=== PATIENT | female | born 1935 | race Caucasian/White ===

== ENCOUNTER → 2016-10-01 | Outpatient (CLI) | payer BC ==
[~2016-10-01] MED LIST: AMLO-110 PO; ASPI-461 PO; AVP150 PO; HYDC25 PO; LEVO50TA PO; LIDO5DIS10 TD
== END | disposition home or self-care (01) ==
LOC: C.MAMM 15:24
PROVIDERS: ATTEND Internal Medicine
DX: M84.30XA Stress fracture, unspecified site, initial encounter for fracture (principal); Z13.820 Encounter for screening for osteoporosis; M85.852 Other specified disorders of bone density and structure, left thigh; M85.851 Other specified disorders of bone density and structure, right thigh

== ENCOUNTER → 2016-10-01 | Outpatient (CLI) | payer BC ==
--- NOTE | 2016-10-15 10:51 | CODING QUERY MEDICAL NECESSITY ---
SUPPORTING DIAGNOSIS NEEDED A supporting diagnosis is required for the test/procedure performed on this patient in order for us to be reimbursed by the patient's insurance. Please provide a supporting diagnosis for the following test/procedure listed below next to the test name along with your signature. *If there is no additional diagnosis for this patient that would support the following test/procedure please document that below next to the test/procedure. Test(s)/Procedure(s) that require a supporting diagnosis: * VITAMIN D 25-HYDROXY DIAGNOSIS: * DOS: 10/01/16 Provider Signature: Date: Thank you Kelly Vargas Health Information Management Once completed, please kindly fax back to [phone] For questions please call [phone]
== END | disposition home or self-care (01) ==
LOC: C.LABBFT 10:37
PROVIDERS: ATTEND Physician Assistant Medical
DX: R79.9 Abnormal finding of blood chemistry, unspecified (principal); M84.30XA Stress fracture, unspecified site, initial encounter for fracture; Z13.820 Encounter for screening for osteoporosis; M85.852 Other specified disorders of bone density and structure, left thigh; M85.851 Other specified disorders of bone density and structure, right thigh; R53.83 Other fatigue

== ENCOUNTER → 2016-10-05 | Outpatient (CLI) | payer BC ==
[2016-10-05 18:02] LABS: THYROID STIMULATING HORMONE 3.39 uIu/ml (0.300-4.500)
[2016-10-06 07:48] LABS: ESTIMATED AVERAGE GLUCOSE 137 mg/dl; HA1C FLAG Normal (Normal)
== END | disposition home or self-care (01) ==
LOC: C.LABBFT 14:15
PROVIDERS: ATTEND Internal Medicine
DX: R73.9 Hyperglycemia, unspecified (principal); E03.9 Hypothyroidism, unspecified

== ENCOUNTER → 2017-04-14 | Outpatient (CLI) | payer BC ==
[2017-04-14 17:40] LABS: URINE APPEARANCE TURBID (CLEAR); URINE BILIRUBIN NEG (NEG); URINE COLOR YELLOW; URINE EPITHELIAL CELL AUTO 20-30 /lpf (0-5); URINE NITRITE NEG (NEG); URINE SPECIFIC GRAVITY 1.018 (1.000-1.030); UROBILINOGEN NEG (NEG); ZZUR CULT IF INDIC CLEAN CATCH YES
[2017-04-14 17:44] LABS: ALT/SGPT 22 U/L (12-78); BLOOD UREA NITROGEN 26 mg/dl (7-18); BUN/CREATININE RATIO 20.2 (10-20); CALCIUM 9.5 mg/dl (8.5-10.1); CARBON DIOXIDE 25 mmol/L (21-32); CHLORIDE 104 mmol/L (98-107); CHOLESTEROL 264 mg/dl (0-200); GLUCOSE 88 mg/dl (70-99); POTASSIUM 4.8 mmol/L (3.5-5.1); SODIUM 139 mmol/L (136-145); TRIGLYCERIDES 307 mg/dl (0-150); URIC ACID 9.4 mg/dl (2.6-7.2); VERY LOW DENSITY LIPOPROT CALC 61 mg/dl
[2017-04-14 17:53] LABS: ALKALINE PHOSPHATASE 74 U/L (45-117); AST/SGOT 19 U/L (15-37); CHOLESTEROL/HDL RATIO 5.9; HDL CHOLESTEROL 45 mg/dl; LDL CHOLESTEROL CALCULATED 158 mg/dl
[2017-04-14 17:54] LABS: MANUAL MICROSCOPIC REQUIRED? NO; REVIEW REQ? NO
[2017-04-14 18:13] LABS: BASO % 0.4 %; BASO ABS # 0.03 K/uL (0-0.2); COMPLETE YES; EOS % 1.3 %; HEMATOCRIT 40.4 % (37-47); IG% 0.3 %; LYMPH % 34.9 %; MEAN CORPUSCULAR HEMOGLOBIN 32.4 pg (25-34); MEAN CORPUSCULAR HGB CONC 32.4 g/dl (32-36); MEAN PLATELET VOLUME 10.4 fL (7.4-10.4); MONO % 10.1 %; PLATELET COUNT 324 K/uL (130-400); RED BLOOD COUNT 4.04 M/uL (4.2-5.4); WHITE BLOOD COUNT 7.74 K/uL (4.8-10.8)
[2017-04-14 18:30] LABS: RATIO 44.1 mcg/mg (0-30.0)
== END ==
LOC: C.LABBFT 13:41
PROVIDERS: ATTEND Physician Assistant Medical
DX: R73.01 Impaired fasting glucose (principal); R39.9 Unspecified symptoms and signs involving the genitourinary system; E55.9 Vitamin D deficiency, unspecified; E03.9 Hypothyroidism, unspecified

== ENCOUNTER → 2017-04-20 | Outpatient (CLI) | payer BC ==
[2017-04-20 18:02] LABS: BLOOD UREA NITROGEN 19 mg/dl (7-18); BUN/CREATININE RATIO 15.4 (10-20); CALCIUM 8.9 mg/dl (8.5-10.1); CARBON DIOXIDE 26 mmol/L (21-32); CHLORIDE 105 mmol/L (98-107); GLUCOSE 88 mg/dl (70-99); POTASSIUM 4.8 mmol/L (3.5-5.1); SODIUM 138 mmol/L (136-145)
== END | disposition home or self-care (01) ==
LOC: C.LABBFT 11:28
PROVIDERS: ATTEND Physician Assistant Medical
DX: N28.9 Disorder of kidney and ureter, unspecified (principal)

== ENCOUNTER → 2017-05-10 | Outpatient (CLI) | payer BC ==
[2017-05-10 17:47] LABS: BLOOD UREA NITROGEN 26 mg/dl (7-18); BUN/CREATININE RATIO 19.8 (10-20); CALCIUM 9.2 mg/dl (8.5-10.1); CARBON DIOXIDE 26 mmol/L (21-32); CHLORIDE 103 mmol/L (98-107); CREATININE 1.29 mg/dl (0.60-1.20); GLUCOSE 159 mg/dl (70-99); POTASSIUM 4.4 mmol/L (3.5-5.1); SODIUM 138 mmol/L (136-145)
== END | disposition home or self-care (01) ==
LOC: C.LABBFT 12:54
PROVIDERS: ATTEND Physician Assistant Medical
DX: N28.9 Disorder of kidney and ureter, unspecified (principal)

== ENCOUNTER → 2017-10-18 | Outpatient (CLI) | payer BC ==
[2017-10-18 13:01] LABS: HEMOGLOBIN A1C 6.5 % (4.5-5.6)
[2017-10-18 13:02] LABS: ALBUMIN 3.2 gm/dl (3.4-5.0); ALT/SGPT 18 U/L (12-78); AST/SGOT 16 U/L (15-37); BLOOD UREA NITROGEN 20 mg/dl (7-18); CALCIUM 8.5 mg/dl (8.5-10.1); CARBON DIOXIDE 26 mmol/L (21-32); CHOLESTEROL 231 mg/dl (0-200); CREATININE 1.22 mg/dl (0.60-1.20); GLUCOSE 94 mg/dl (70-99); POTASSIUM 4.6 mmol/L (3.5-5.1); SODIUM 139 mmol/L (136-145)
[2017-10-18 13:12] LABS: ALKALINE PHOSPHATASE 65 U/L (45-117); LDL CHOLESTEROL CALCULATED 143 mg/dl; TOTAL PROTEIN 6.8 gm/dl (6.4-8.2)
[2017-10-18 15:07] LABS: CREATININE RANDOM URINE 87.7 mg/dl
== END | disposition home or self-care (01) ==
LOC: C.LABBFT 10:09
PROVIDERS: ATTEND Physician Assistant Medical
DX: E55.9 Vitamin D deficiency, unspecified (principal); N28.9 Disorder of kidney and ureter, unspecified; E11.29 Type 2 diabetes mellitus with other diabetic kidney complication

== ENCOUNTER 2018-02-28 23:55 | Emergency (ER) | payer BC ==
[~2018-02-28] VITALS: Ht 152.4 cm; Wt 78.0 kg
[~2018-02-28 23:55] MED LIST changes: -AMLO-110 PO; -AVP150 PO; +CHOL20005 PO; +CIPR1TAB10 PO; -HYDC25 PO; +HYDR12.56 PO; +IRBE-39 PO; -LIDO5DIS10 TD
[2018-03-01 00:01] VITALS: TEMP 36.5; Ht 152.4 cm; Wt 78.0 kg
[2018-03-01 00:11] VITALS: O2SAT 95
--- NOTE | 2018-03-01 00:19 | EMERGENCY ROOM VISIT NOTE ---
History Report prepared by Danay: Wayne Livingston Under the Supervision of: Dr. Chela Sierra D.O. First contact with patient: 00:05 Chief Complaint: ALLERGIC REACTION Stated Complaint: ALLERGIC REACTION-TONGUE NUMB/SWELLING History of Present Illness The patient is an 82 year old female who presents to the Emergency Room with complaints of constant swelling in her throat and numbness to her tongue that began at 2200, 2 hours ago. The patient and her daughter at bedside notes that she ate a sausage sandwich at 1700, 7 hours ago. The symptoms onset at 2200, 5 hours after eating the sausage sandwich. She notes that she could feel the swelling on the left side of her throat, and does feel a "difficulty swallowing. " The patient also complains of itchiness to her hands and under her arms. She did take one tablet of Benadryl about 25 minutes prior to arrival, per the daughter. She has a history of hypertension and blood pressure. The patient later recalled that she did eat 2 [employer] cookies right before her symptoms began. Source of History: patient Onset: 2 years ago Position: tongue Quality: other (swelling) Timing: constant Note: Itchiness to hands and under arms Review of Systems See HPI for pertinent positives & negatives. A total of 10 systems reviewed and were otherwise negative. Past Medical & Surgical Medical Problems: (1) HTN (hypertension) Hx of Hypothyroidism. Family History Cancer Diabetes mellitus Social History Smoking Status: Never Smoker Housing Status: lives with family Occupation Status: retired Current/Historical Medications Scheduled Aspirin (Aspirin), 81 MG PO DAILY Cholecalciferol (Vitamin D3), 2,000 UNITS PO DAILY Hydrochlorothiazide (Hctz), 12.5 MG PO DAILY Irbesartan (Avapro), 300 MG PO DAILY Levothyroxine Sodium (Synthroid), 50 MCG PO DAILY Allergies Coded Allergies: Sulfamethoxazole w/Trimethoprim (Verified Allergy, Unknown, ., 12/12/17) Physical Exam Vital Signs Date Time Temp Pulse Resp B/P (MAP) Pulse Ox O2 Delivery O2 Flow Rate FiO2 03/01/18 02:11 76 19 158/75 96 03/01/18 01:23 75 19 163/77 96 Room Air 03/01/18 00:17 81 03/01/18 00:11 95 Room Air 03/01/18 00:08 96 Room Air 03/01/18 00:01 36.5 84 18 175/82 95 Room Air Physical Exam HEENT: Head - normocephalic and atraumatic Pupils are equal, round, and reactive to light. Extraocular eye muscles are intact, and sclera are anicteric. Nose - moist nasal mucosa without discharge. Mouth - moist buccal mucosa. There is edema under the tongue with water blisters to the left side of her tongue. Oropharynx is nonerythematous and there is no tonsillar exudate or edema noted. Neck: Supple; no JVD, nuchal rigidity, cervical lymphadenopathy. Heart: Regular rate and rhythm. There is a normal S1 and S2 with no murmurs, clicks, or gallops appreciated. Lungs: Clear to auscultation bilaterally with no wheezes, rales, or rhonchi. Abdomen: Soft, completely nontender, nondistended, with good bowel sounds. There are no palpable pulsatile masses or hepatosplenomegaly. There is no guarding, rigidity, or rebound noted. Extremities: No evidence of cyanosis, clubbing, or edema. There are easily palpable peripheral pulses. Skin: There is redness to her face and palms of her hands. Medical Decision & Procedures Medications Administered Medications (Trade) Dose Ordered Sig/[place] Route Start Time Stop Time Status Last Admin Dose Admin Diphenhydramine HCl (Benadryl Inj) 25 mg NOW STAT IV 03/01/18 00:23 03/01/18 00:25 DC 03/01/18 00:35 25 MG Dexamethasone Sodium Phosphate (Decadron Inj) 10 mg STK-MED ONCE .ROUTE 03/01/18 00:31 03/01/18 00:32 DC 03/01/18 00:35 10 MG Ranitidine HCl 50 mg/Dextrose 102 ml @ 204 mls/hr NOW ONCE IV 03/01/18 01:00 03/01/18 01:29 DC 03/01/18 00:50 204 MLS/HR Procedure Medications ordered: IV Benadryl, IV Zantac, IV Decadron ED Course 0008: Past medical records reviewed. The patient was evaluated in room B2. A complete history and physical exam was performed. 0023: Ordered Benadryl 25 mg IV. 0100: Ordered Ranitidine HCl 50 mg 102 mL @ 204 mL/hr IV. IV Decadron 0158: Upon reevaluation, she is feeling much better and her swelling/redness is all gone. I discussed findings and results with her and her daughter. They verbalized agreement of the treatment plan. The patient was discharged home. Medical Decision The patient is a 82 year old female who presents to the Emergency Department complaining of swelling to her throat and tongue as well as itching to her hands. Differential diagnosis includes allergic reaction, anaphylaxis, and angioedema. This is an 82-year-old female patient was having a allergic reaction. Initially , the patient thought that it was from a hot sausage sandwich. However, the patient had ingested that food 5 hours prior to her symptoms starting. She was able to remember that she developed these symptoms a couple minutes after she had eaten some cookies. She is most likely having an allergic reaction secondary to the cookies. She was given Benadryl, Zantac, and Decadron with significant relief of her symptoms. She was encouraged to avoid using those cookies again in the future. She can continue to use Benadryl and Zantac if needed. Medication Reconcilliation Current Medication List: was personally reviewed by me Blood Pressure Screening Patient's blood pressure: Elevated blood pressure Blood pressure disposition: Elevated BP felt to be situational Impression Primary Impression: Allergic reaction Scribe Attestation The scribe's documentation has been prepared under my direction and personally reviewed by me in its entirety. I confirm that the note above accurately reflects all work, treatment, procedures, and medical decision making performed by me. Departure Information Dispostion Home / Self-Care Referrals Perez Anderson M.D. (PCP) Forms HOME CARE DOCUMENTATION FORM, IMPORTANT VISIT INFORMATION Patient Instructions My [facility] [address] Additional Instructions Rest. Take benadryl - 50mg every 6 hours for reaction along with zanctac - 75mg Return to the ED if you have a worsening allergic reaction Problem Qualifiers Primary Impression: Allergic reaction Encounter type: initial encounter Qualified Codes: T78.40XA - Allergy, unspecified, initial encounter
[2018-03-01] MEDS ORDERED: RANITIDINE HCL 50 MG/100 ML D5W IV STA (00:23)
[2018-03-01] MEDS ORDERED: DiphenhydrAMINE HCL 50 MG/ML VIAL IV STA (00:23)
[2018-03-01] MEDS ORDERED: DEXAMETHASONE INJ 10 MG in SYRINGE 0 ML IV STA (00:23)
[2018-03-01] MEDS ORDERED: DEXAMETHASONE SOD INJ 10 MG/ML VIAL ONE (00:31)
[2018-03-01] MEDS ORDERED: RANITIDINE IV 50 MG in DEXTROSE 5% 100ML 100 ML IV ONE (01:00)
[2018-03-01 02:11] VITALS: BP 158/75; PULSE 76; O2SAT 96
== END 2018-03-01 02:13 | disposition home or self-care (01) ==
LOC: C.EDB 23:57
DX: T78.40XA Allergy, unspecified, initial encounter (principal); R20.0 Anesthesia of skin; I10 Essential (primary) hypertension; Z79.82 Long term (current) use of aspirin; Z79.899 Other long term (current) drug therapy; Z88.2 Allergy status to sulfonamides; Z86.39 Personal history of other endocrine, nutritional and metabolic disease; X58.XXXA Exposure to other specified factors, initial encounter